=== PATIENT | female | born 1960 | race African-American/Black ===

== ENCOUNTER 2022-06-07 17:31 | Inpatient (IN) | payer MEDICARE ==
[~2022-06-07] VITALS: Ht 162.6 cm; Wt 42.7 kg
[2022-06-07] MEDS ORDERED: MORPHINE SULFATE 4 MG/ML CPJ (NOT FOR IM USE) IV ONE (19:00)
[2022-06-07 19:06] LABS: BASOPHILS % 0.6 % (0.0-2.0); EOSINOPHILS % 0.8 % (0.0-5.0); HEMATOCRIT. 36.7 % (36.0-48.0); HEMOGLOBIN. 11.5 g/dL (12.0-16.0); MEAN CORPUSCULAR HEMOGLOBIN 24.2 pg (28.0-32.0); MEAN CORPUSCULAR VOLUME 77.3 fL (81.0-99.0); MEAN PLATELET VOLUME 8.5 fl (7.4-10.4); MONOCYTES % 6.4 % (2.0-8.0); NEUTROPHILS % 84.2 % (40.0-76.0); PLATELET 433 x1000/uL (130-400); RED BLOOD CELL COUNT 4.74 mill/uL (4.2-5.4)
[2022-06-07 20:29] LABS: PLATELET ESTIMATE INCREASED
[2022-06-07] MEDS ORDERED: ASPIRIN 81MG TABLET PO NR (21:30)
[2022-06-07] MEDS ORDERED: ACETAMINOPHEN 650MG SUPP PR PRN ×2 (21:45)
[2022-06-07] MEDS ORDERED: ACETAMINOPHEN 325MG TABLET PO PRN (21:45)
[2022-06-07] MEDS ORDERED: CLONIDINE 0.1MG TABLET PO PRN (21:45)
[2022-06-07] MEDS ORDERED: DOCUSATE SODIUM 100MG CAPSULE PO PRN (21:45)
[2022-06-07] MEDS ORDERED: MAGNESIUM/ALUMINUM HYDROXIDE/SIMETHICONE 30ML UDC PO PRN (21:45)
[2022-06-07] MEDS: LORAZEPAM 0.5MG TABLET PO PRN (23:00)
[2022-06-07] MEDS: ACETAMINOPHEN 325MG TABLET PO PRN (23:01)
[2022-06-08 06:13] LABS: BASOPHILS % 1.3 % (0.0-2.0); HEMATOCRIT. 34.9 % (36.0-48.0); HEMOGLOBIN. 11.2 g/dL (12.0-16.0); MEAN CORPUSCULAR HEMOGLOBIN 24.6 pg (28.0-32.0); MEAN CORPUSCULAR VOLUME 76.7 fL (81.0-99.0); MEAN PLATELET VOLUME 7.7 fl (7.4-10.4); MONOCYTES % 6.6 % (2.0-8.0); NEUTROPHILS % 79.1 % (40.0-76.0); PLATELET 350 x1000/uL (130-400); RED BLOOD CELL COUNT 4.55 mill/uL (4.2-5.4); RED CELL DISTRIBUTION WIDTH 22.6 % (11.6-14.6)
[2022-06-08] MEDS: SODIUM CHLORIDE 3% FOR INH 4ML UD NEB INH SCH (09:00)
[2022-06-08] MEDS: FUROSEMIDE 40MG/4ML VIAL IV SCH (09:00)
[2022-06-08 14:46] LABS: CHLORIDE 95 mEq/L (98-107)
[2022-06-08 15:30] VITALS: BP 120/63
[2022-06-08 16:00] VITALS: BP 125/65
[2022-06-08] MEDS: GUAIFENESIN 200MG/10ML SUGAR FREE UDC PO PRN (16:06)
[2022-06-08] MEDS: ACETYLCYSTEINE 100MG/ML 10% VIAL 4ML INH SCH (16:14)
[2022-06-08 20:00] VITALS: BP 117/69
[2022-06-08] MEDS ORDERED: NALOXONE HCL 0.4MG/ML VIAL IV PRN (20:00)
[2022-06-08] MEDS: HYDROCODONE/ACETAMINOPHEN 5/325MG TABLET PO PRN (21:19)
[2022-06-08] MEDS: LORAZEPAM 0.5MG TABLET PO PRN (21:20)
[2022-06-08] MEDS: CEFTRIAXONE 1,000 MG in DEXTROSE 5% WATER 50 ML IV SCH (21:29)
[2022-06-09] VITALS: BP 131/87
[2022-06-09] MEDS: LORAZEPAM 0.5MG TABLET PO PRN ×2 (01:22→16:55)
[2022-06-09] MEDS: HYDROCODONE/ACETAMINOPHEN 5/325MG TABLET PO PRN ×2 (01:22→16:56)
[2022-06-09 02:02] LABS: CHLORIDE 97 mEq/L (98-107)
[2022-06-09 03:37] LABS: ETHANOL BLOOD < 10 mg/dL
[2022-06-09 04:00] VITALS: BP 126/77
[2022-06-09 04:29] LABS: TOTAL IRON BINDING CAPACITY 202 ug/dL (250-450)
[2022-06-09] MEDS: ACETYLCYSTEINE 100MG/ML 10% VIAL 4ML INH SCH ×2 (06:00→17:46)
[2022-06-09 07:02] LABS: EOSINOPHILS % 0.8 % (0.0-5.0); HEMATOCRIT. 35.1 % (36.0-48.0); HEMOGLOBIN. 11.1 g/dL (12.0-16.0); LYMPHOCYTES % 9.8 % (20.0-50.0); MEAN CORPUSCULAR HEMOGLOBIN 24.4 pg (28.0-32.0); MEAN CORPUSCULAR VOLUME 76.8 fL (81.0-99.0); MEAN PLATELET VOLUME 7.7 fl (7.4-10.4); MONOCYTES % 6.5 % (2.0-8.0); NEUTROPHILS % 81.9 % (40.0-76.0); PLATELET 290 x1000/uL (130-400); RED BLOOD CELL COUNT 4.57 mill/uL (4.2-5.4)
[2022-06-09 08:00] VITALS: BP 128/72
[2022-06-09] MEDS: FUROSEMIDE 40MG/4ML VIAL IV SCH (08:28)
[2022-06-09] MEDS: SODIUM CHLORIDE 3% FOR INH 4ML UD NEB INH SCH ×2 (09:00→17:46)
[2022-06-09 12:00] VITALS: BP 123/65
[2022-06-09 16:00] VITALS: BP 128/76
[2022-06-09 16:04] LABS: CHLORIDE 97 mEq/L (98-107)
[2022-06-09] MEDS: IPRATROPIUM/ALBUTEROL 0.5-3(2.5)MG/3ML NEB HHN PRN (17:46)
[2022-06-09] MEDS ORDERED: SODIUM POLYSTYRENE SULFONATE 15 G/60 ML BOT PO NR (19:45)
[2022-06-09 20:00] VITALS: BP 97/55
[2022-06-09] MEDS: CEFTRIAXONE 1,000 MG in DEXTROSE 5% WATER 50 ML IV SCH (20:50)
[2022-06-10] VITALS (7 sets, daily range): BP systolic 102–129; BP diastolic 58–81
[2022-06-10] MEDS: ACETYLCYSTEINE 100MG/ML 10% VIAL 4ML INH SCH ×2 (00:16→01:00)
[2022-06-10] MEDS: IPRATROPIUM/ALBUTEROL 0.5-3(2.5)MG/3ML NEB HHN PRN (01:04)
[2022-06-10] MEDS: GUAIFENESIN 200MG/10ML SUGAR FREE UDC PO PRN ×2 (01:32→23:00)
[2022-06-10] MEDS: LORAZEPAM 0.5MG TABLET PO PRN ×3 (01:33→21:46)
[2022-06-10] MEDS: HYDROCODONE/ACETAMINOPHEN 5/325MG TABLET PO PRN ×2 (01:33→20:29)
[2022-06-10 07:35] LABS: BASOPHILS % 1.4 % (0.0-2.0); EOSINOPHILS % 1.2 % (0.0-5.0); HEMATOCRIT. 34.9 % (36.0-48.0); HEMOGLOBIN. 10.9 g/dL (12.0-16.0); LYMPHOCYTES % 10.7 % (20.0-50.0); MEAN CORPUSCULAR HEMOGLOBIN 24.1 pg (28.0-32.0); MEAN CORPUSCULAR VOLUME 77.1 fL (81.0-99.0); NEUTROPHILS % 80.7 % (40.0-76.0); PLATELET 264 x1000/uL (130-400); RED BLOOD CELL COUNT 4.53 mill/uL (4.2-5.4); RED CELL DISTRIBUTION WIDTH 22.9 % (11.6-14.6)
[2022-06-10 08:09] LABS: HIV SCREEN 4G Non Reactive (Non Reactive)
[2022-06-10 09:01] LABS: CREATINE KINASE 19 IU/L (26-192)
[2022-06-10] MEDS: FUROSEMIDE 40MG/4ML VIAL IV SCH (09:04)
[2022-06-10] MEDS: ACETAMINOPHEN 325MG TABLET PO PRN (09:25)
[2022-06-10 09:46] LABS: CHLORIDE 94 mEq/L (98-107)
[2022-06-10] MEDS ORDERED: SODIUM BICARBONATE 4% (2.4MEQ) 5ML VIAL IV ONE (14:48)
[2022-06-10] MEDS ORDERED: LIDOCAINE HCL 1% 30ML VIAL (10MG/ML) ONE (14:48)
[2022-06-10] MEDS ORDERED: SODIUM CHLORIDE 10% FOR INH 15ML VIAL NEB INH SCH (15:00)
[2022-06-10 18:33] LABS: INR 1.1; PROTHROMBIN TIME 11.7 sec (9.6-11.0)
[2022-06-10] MEDS: CEFTRIAXONE 1,000 MG in DEXTROSE 5% WATER 50 ML IV SCH (20:19)
[2022-06-11] VITALS: BP 119/71
[2022-06-11 04:00] VITALS: BP 129/72
[2022-06-11 07:07] LABS: QFT TB GOLD PLUS Negative (Negative)
[2022-06-11] MEDS: IPRATROPIUM/ALBUTEROL 0.5-3(2.5)MG/3ML NEB HHN PRN ×2 (08:42→16:11)
[2022-06-11] MEDS: ACETYLCYSTEINE 100MG/ML 10% VIAL 4ML INH SCH ×2 (08:42→16:11)
[2022-06-11] MEDS: SODIUM CHLORIDE 3% FOR INH 4ML UD NEB INH SCH (08:54)
[2022-06-11] MEDS: FUROSEMIDE 40MG/4ML VIAL IV SCH (09:50)
[2022-06-11 11:45] VITALS: BP 122/77
[2022-06-11 11:50] VITALS: BP 135/79
[2022-06-11] MEDS: LORAZEPAM 0.5MG TABLET PO PRN (12:38)
[2022-06-11] MEDS: HYDROCODONE/ACETAMINOPHEN 5/325MG TABLET PO PRN ×2 (13:46→21:12)
[2022-06-11 15:18] LABS: BG CARBOXYHEMOGLOBIN 0.6 % (0.5-1.5); BG DEOXYHEMOGLOBIN 9.2 % (0.0-5.0); BG METHEMOGLOBIN 0.2 % (0.0-1.5); BG OXYGEN SATURATION 90.7 % (92.0-98.5); BG PCO2 49.8 mmHg (35.0-45.0); BG PH 7.489 (7.350-7.450); BG PO2 58.3 mmHg (75.0-100.0); BG SAMPLE SITE RIGHT RADIAL; BG TOTAL HEMOGLOBIN 11.6 g/dL (12.0-18.0); BG VENT MODE ROOM AIR
[2022-06-11 16:00] VITALS: BP 115/66
[2022-06-11] MEDS: CEFTRIAXONE 1,000 MG in DEXTROSE 5% WATER 50 ML IV SCH (21:05)
[2022-06-12] VITALS: BP 113/71
[2022-06-12] MEDS: ACETAMINOPHEN 325MG TABLET PO PRN ×2 (01:22→22:57)
[2022-06-12 04:00] VITALS: BP 134/77
[2022-06-12 08:00] VITALS: BP 104/68
[2022-06-12 08:28] LABS: BASOPHILS % 1.1 % (0.0-2.0); HEMATOCRIT. 33.2 % (36.0-48.0); HEMOGLOBIN. 10.7 g/dL (12.0-16.0); LYMPHOCYTES % 10.2 % (20.0-50.0); MEAN CORPUSCULAR HEMOGLOBIN 24.4 pg (28.0-32.0); MEAN CORPUSCULAR VOLUME 75.9 fL (81.0-99.0); MEAN PLATELET VOLUME 7.9 fl (7.4-10.4); MONOCYTES % 7.1 % (2.0-8.0); NEUTROPHILS % 80.6 % (40.0-76.0); PLATELET 272 x1000/uL (130-400); RED BLOOD CELL COUNT 4.37 mill/uL (4.2-5.4); RED CELL DISTRIBUTION WIDTH 23.6 % (11.6-14.6)
[2022-06-12] MEDS: FUROSEMIDE 40MG/4ML VIAL IV SCH (08:30)
[2022-06-12] MEDS: IPRATROPIUM/ALBUTEROL 0.5-3(2.5)MG/3ML NEB HHN PRN (09:26)
[2022-06-12] MEDS: ACETYLCYSTEINE 100MG/ML 10% VIAL 4ML INH SCH ×2 (09:26→16:39)
[2022-06-12 10:18] LABS: CHLORIDE 92 mEq/L (98-107)
[2022-06-12 11:57] VITALS: BP 108/69
[2022-06-12 16:35] VITALS: BP 130/90
[2022-06-12] MEDS: IPRATROPIUM BROMIDE (0.02%) 0.5MG/2.5ML NEB HHN PRN (16:39)
[2022-06-12] MEDS: ENOXAPARIN 30MG/0.3ML SYR SUBCUT SCH (16:44)
[2022-06-12] MEDS: ASPIRIN 81MG EC TABLET PO SCH (16:45)
[2022-06-12 20:00] VITALS: BP 142/79
[2022-06-12] MEDS: CEFTRIAXONE 1,000 MG in DEXTROSE 5% WATER 50 ML IV SCH (20:20)
[2022-06-13] VITALS: BP 139/88
[2022-06-13] MEDS: IPRATROPIUM BROMIDE (0.02%) 0.5MG/2.5ML NEB HHN PRN ×3 (00:36→20:00)
[2022-06-13] MEDS: ACETYLCYSTEINE 100MG/ML 10% VIAL 4ML INH SCH ×4 (00:36→20:00)
[2022-06-13 04:00] VITALS: BP 118/66
[2022-06-13 06:54] LABS: BASOPHILS % 0.8 % (0.0-2.0); EOSINOPHILS % 1.6 % (0.0-5.0); HEMATOCRIT. 33.5 % (36.0-48.0); HEMOGLOBIN. 10.9 g/dL (12.0-16.0); LYMPHOCYTES % 13.8 % (20.0-50.0); MEAN CORPUSCULAR HEMOGLOBIN 24.7 pg (28.0-32.0); MEAN PLATELET VOLUME 7.7 fl (7.4-10.4); MONOCYTES % 6.5 % (2.0-8.0); NEUTROPHILS % 77.3 % (40.0-76.0); PLATELET 273 x1000/uL (130-400); RED CELL DISTRIBUTION WIDTH 23.8 % (11.6-14.6)
[2022-06-13 08:00] VITALS: BP 157/82
[2022-06-13 08:43] LABS: CHLORIDE 97 mEq/L (98-107)
[2022-06-13] MEDS: SODIUM CHLORIDE 3% FOR INH 4ML UD NEB INH SCH ×2 (08:47→09:57)
[2022-06-13 09:36] LABS: HDL CHOLESTEROL 43 mg/dL (40-59); LDL CHOLESTEROL 86 mg/dL (5-100)
[2022-06-13] MEDS ORDERED: IOHEXOL-350 100 ML BOTTLE ONE (10:46)
[2022-06-13] MEDS: ENOXAPARIN 30MG/0.3ML SYR SUBCUT SCH (11:26)
[2022-06-13] MEDS: ASPIRIN 81MG EC TABLET PO SCH (11:26)
[2022-06-13 12:00] VITALS: BP 107/72
[2022-06-13] MEDS: ACETAMINOPHEN 325MG TABLET PO PRN (14:08)
[2022-06-13 16:00] VITALS: BP 158/86
[2022-06-13] MEDS ORDERED: SODIUM CHLORIDE 10% FOR INH 15ML VIAL NEB INH SCH (18:30)
[2022-06-13 20:00] VITALS: BP 138/79
[2022-06-13] MEDS: CEFTRIAXONE 1,000 MG in DEXTROSE 5% WATER 50 ML IV SCH (20:26)
[2022-06-14] VITALS: BP 128/60
[2022-06-14] MEDS: ACETAMINOPHEN 325MG TABLET PO PRN ×2 (03:22→16:26)
[2022-06-14 04:00] VITALS: BP 104/64
[2022-06-14 06:21] LABS: BASOPHILS % 0.5 % (0.0-2.0); EOSINOPHILS % 1.1 % (0.0-5.0); HEMATOCRIT. 31.5 % (36.0-48.0); HEMOGLOBIN. 10.3 g/dL (12.0-16.0); LYMPHOCYTES % 11.1 % (20.0-50.0); MEAN CORPUSCULAR HEMOGLOBIN 24.8 pg (28.0-32.0); MEAN CORPUSCULAR VOLUME 76.1 fL (81.0-99.0); MEAN PLATELET VOLUME 7.9 fl (7.4-10.4); MONOCYTES % 5.5 % (2.0-8.0); NEUTROPHILS % 81.8 % (40.0-76.0); PLATELET 293 x1000/uL (130-400); RED BLOOD CELL COUNT 4.14 mill/uL (4.2-5.4); RED CELL DISTRIBUTION WIDTH 23.7 % (11.6-14.6)
[2022-06-14 07:51] LABS: CHLORIDE 95 mEq/L (98-107)
[2022-06-14 08:00] VITALS: BP 110/71
[2022-06-14] MEDS: IPRATROPIUM BROMIDE (0.02%) 0.5MG/2.5ML NEB HHN PRN ×2 (08:47→12:47)
[2022-06-14 12:00] VITALS: BP 120/68
[2022-06-14] MEDS: SODIUM CHLORIDE 3% FOR INH 4ML UD NEB INH SCH (12:46)
[2022-06-14 16:00] VITALS: BP 100/69
[2022-06-14 20:00] VITALS: BP 128/82
[2022-06-14] MEDS: CEFTRIAXONE 1,000 MG in DEXTROSE 5% WATER 50 ML IV SCH (20:06)
[2022-06-15] VITALS: BP 117/78
[2022-06-15] MEDS: ACETAMINOPHEN 325MG TABLET PO PRN (00:43)
[2022-06-15 04:00] VITALS: BP 147/76
[2022-06-15] MEDS: HALOPERIDOL LACTATE 5MG/ML VIAL IM PRN (12:55)
[2022-06-15 20:00] VITALS: BP 134/86
[2022-06-15] MEDS: CEFTRIAXONE 1,000 MG in DEXTROSE 5% WATER 50 ML IV SCH (21:01)
[2022-06-16] VITALS: BP 136/77
[2022-06-16] MEDS: HALOPERIDOL LACTATE 5MG/ML VIAL IM PRN (00:16)
[2022-06-16 02:33] LABS: HEMATOCRIT 35.2 % (36.0-48.0); HEMOGLOBIN 11.4 g/dL (12.0-16.0); MEAN CORPUSCULAR HEMOGLOBIN 24.7 pg (28.0-32.0); MEAN CORPUSCULAR VOLUME 75.8 fL (81.0-99.0); PLATELET 386 x1000/uL (130-400); RED BLOOD CELL COUNT 4.64 mill/uL (4.2-5.4); RED CELL DISTRIBUTION WIDTH 23.9 % (11.6-14.6)
[2022-06-16 02:40] LABS: CHLORIDE 99 mEq/L (98-107)
[2022-06-16 04:00] VITALS: BP 130/77
[2022-06-16] MEDS: IPRATROPIUM BROMIDE (0.02%) 0.5MG/2.5ML NEB HHN PRN (06:20)
[2022-06-16] MEDS ORDERED: METOPROLOL TARTRATE 5MG/5ML VIAL IV NR (07:00)
[2022-06-16 07:46] LABS: HEMATOCRIT 34.8 % (36.0-48.0); HEMOGLOBIN 11.3 g/dL (12.0-16.0); MEAN CORPUSCULAR VOLUME 77.2 fL (81.0-99.0); PLATELET 370 x1000/uL (130-400); RED CELL DISTRIBUTION WIDTH 24.2 % (11.6-14.6)
[2022-06-16 08:00] VITALS: BP 92/55
[2022-06-16 08:05] LABS: CHLORIDE 101 mEq/L (98-107)
[2022-06-16 08:19] LABS: PHOSPHORUS 3.3 mg/dL (2.5-4.9)
[2022-06-16 12:00] VITALS: BP 94/65
[2022-06-16 16:00] VITALS: BP 98/72
[2022-06-16 20:00] VITALS: BP 147/80
[2022-06-17] VITALS: BP 138/80
[2022-06-17 04:00] VITALS: BP 125/58
[2022-06-17 06:26] LABS: BASOPHILS % 1.1 % (0.0-2.0); CHLORIDE 99 mEq/L (98-107); EOSINOPHILS % 1.4 % (0.0-5.0); HEMATOCRIT. 32.6 % (36.0-48.0); HEMOGLOBIN. 10.6 g/dL (12.0-16.0); MEAN CORPUSCULAR HEMOGLOBIN 25.2 pg (28.0-32.0); MEAN CORPUSCULAR VOLUME 77.6 fL (81.0-99.0); MEAN PLATELET VOLUME 7.7 fl (7.4-10.4); MONOCYTES % 6.6 % (2.0-8.0); NEUTROPHILS % 77.9 % (40.0-76.0); PLATELET 391 x1000/uL (130-400); RED CELL DISTRIBUTION WIDTH 24.1 % (11.6-14.6)
[2022-06-17 08:00] VITALS: BP 130/81
[2022-06-17] MEDS: SODIUM CHLORIDE 3% FOR INH 4ML UD NEB INH SCH (08:21)
[2022-06-17 12:00] VITALS: BP 139/74
[2022-06-17 16:00] VITALS: BP 163/103
[2022-06-17] MEDS ORDERED: METOPROLOL TARTRATE 5MG/5ML VIAL IV ONE ×2 (17:00→17:15)
[2022-06-17] MEDS: IPRATROPIUM BROMIDE (0.02%) 0.5MG/2.5ML NEB HHN PRN (17:04)
[2022-06-17] MEDS: LORAZEPAM 2MG/ML CPJ IV PRN (17:14)
[2022-06-17] MEDS ORDERED: METOPROLOL TARTRATE 5MG/5ML VIAL IV PRN (17:15)
[2022-06-17 17:19] LABS: BG BASE EXCESS 2.8 mmol/L (-2.0-2.0); BG CARBOXYHEMOGLOBIN 0.4 % (0.5-1.5); BG DEOXYHEMOGLOBIN 3.4 % (0.0-5.0); BG HCO3 ACT 28.8 mmol/L (22.0-26.0); BG METHEMOGLOBIN 0.2 % (0.0-1.5); BG OXYGEN SATURATION 96.6 % (92.0-98.5); BG PCO2 50.2 mmHg (35.0-45.0); BG PH 7.376 (7.350-7.450); BG PO2 91.9 mmHg (75.0-100.0); BG SAMPLE SITE RIGHT BRACHIAL; BG TOTAL HEMOGLOBIN 11.9 g/dL (12.0-18.0); BG VENT MODE MASK - SIMPLE
[2022-06-17 20:00] VITALS: BP 113/80
[2022-06-17] MEDS: QUETIAPINE FUMARATE 25MG TABLET PO SCH (20:23)
[2022-06-18] VITALS (8 sets, daily range): BP systolic 100–139; BP diastolic 58–89
[2022-06-18] MEDS: LORAZEPAM 2MG/ML CPJ IV PRN ×2 (02:41→10:03)
[2022-06-18 08:33] LABS: EOSINOPHILS % 2.2 % (0.0-5.0); HEMATOCRIT. 31.1 % (36.0-48.0); LYMPHOCYTES % 15.3 % (20.0-50.0); MEAN CORPUSCULAR HEMOGLOBIN 24.7 pg (28.0-32.0); MEAN CORPUSCULAR VOLUME 76.9 fL (81.0-99.0); MEAN PLATELET VOLUME 7.5 fl (7.4-10.4); MONOCYTES % 7.1 % (2.0-8.0); NEUTROPHILS % 74.4 % (40.0-76.0); PLATELET 399 x1000/uL (130-400); RED BLOOD CELL COUNT 4.05 mill/uL (4.2-5.4); RED CELL DISTRIBUTION WIDTH 24.4 % (11.6-14.6)
[2022-06-18] MEDS: SODIUM CHLORIDE 3% FOR INH 4ML UD NEB INH SCH (09:00)
[2022-06-18 09:06] LABS: CHLORIDE 102 mEq/L (98-107)
[2022-06-18] MEDS ORDERED: CEFTRIAXONE 1 G PREMIX 50 ML IV SCH (11:30)
[2022-06-18] MEDS ORDERED: CEFTRIAXONE 1,000 MG in DEXTROSE 5% WATER 50 ML IV SCH (13:00)
[2022-06-18 13:34] LABS: BG BASE EXCESS 6.4 mmol/L (-2.0-2.0); BG CARBOXYHEMOGLOBIN 0.8 % (0.5-1.5); BG DEOXYHEMOGLOBIN 13.7 % (0.0-5.0); BG FRACTION INSPIRED OXYGEN 21; BG HCO3 ACT 30.9 mmol/L (22.0-26.0); BG METHEMOGLOBIN 0.2 % (0.0-1.5); BG OXYGEN SATURATION 86.2 % (92.0-98.5); BG OXYHEMOGLOBIN 85.3 % (94.0-97.0); BG PCO2 44.5 mmHg (35.0-45.0); BG SAMPLE SITE RIGHT RADIAL; BG TOTAL HEMOGLOBIN 11.1 g/dL (12.0-18.0); BG VENT MODE ROOM AIR
[2022-06-18] MEDS: ACETAMINOPHEN 325MG TABLET PO PRN ×2 (15:06→20:06)
[2022-06-18] MEDS: QUETIAPINE FUMARATE 25MG TABLET PO SCH (20:07)
[2022-06-19] VITALS: BP 130/88
[2022-06-19 04:00] VITALS: BP 124/74
[2022-06-19 06:24] LABS: HEMATOCRIT 29.8 % (36.0-48.0); HEMOGLOBIN 9.4 g/dL (12.0-16.0); MEAN CORPUSCULAR HEMOGLOBIN 24.5 pg (28.0-32.0); MEAN CORPUSCULAR VOLUME 77.4 fL (81.0-99.0); PLATELET 425 x1000/uL (130-400); RED BLOOD CELL COUNT 3.85 mill/uL (4.2-5.4); RED CELL DISTRIBUTION WIDTH 24.9 % (11.6-14.6)
[2022-06-19 06:49] LABS: CHLORIDE 101 mEq/L (98-107)
[2022-06-19 06:55] LABS: PHOSPHORUS 3.3 mg/dL (2.5-4.9)
[2022-06-19 08:00] VITALS: BP 143/74
[2022-06-19] MEDS: LORAZEPAM 2MG/ML CPJ IV PRN (10:49)
[2022-06-19 12:00] VITALS: BP 112/80
[2022-06-19] MEDS ORDERED: VANCOMYCIN 1G PREMIX 200 ML IV NR (12:30)
[2022-06-19] MEDS: MEROPENEM 1,000 MG in SODIUM CHLORIDE 0.9% 100 ML IV SCH (13:18)
[2022-06-19 16:00] VITALS: BP 112/80
[2022-06-19] MEDS ORDERED: LOPERAMIDE HCL 2MG CAPSULE PO PRN (19:00)
[2022-06-19 20:00] VITALS: BP 114/72
[2022-06-19] MEDS: QUETIAPINE FUMARATE 25MG TABLET PO SCH (20:42)
[2022-06-20] VITALS: BP 108/63
[2022-06-20] MEDS: MEROPENEM 1,000 MG in SODIUM CHLORIDE 0.9% 100 ML IV SCH ×2 (00:02→12:26)
[2022-06-20] MEDS ORDERED: VANCOMYCIN 500MG PREMIX 100 ML IV SCH (01:00)
[2022-06-20 04:00] VITALS: BP 110/69
[2022-06-20 06:51] LABS: BASOPHILS % 1.7 % (0.0-2.0); EOSINOPHILS % 6.5 % (0.0-5.0); HEMATOCRIT. 29.5 % (36.0-48.0); HEMOGLOBIN. 9.5 g/dL (12.0-16.0); LYMPHOCYTES % 20.2 % (20.0-50.0); MEAN CORPUSCULAR VOLUME 77.6 fL (81.0-99.0); MEAN PLATELET VOLUME 7.7 fl (7.4-10.4); MONOCYTES % 8.7 % (2.0-8.0); NEUTROPHILS % 62.9 % (40.0-76.0); PLATELET 470 x1000/uL (130-400); RED BLOOD CELL COUNT 3.81 mill/uL (4.2-5.4); RED CELL DISTRIBUTION WIDTH 25.8 % (11.6-14.6)
[2022-06-20 07:36] LABS: CHLORIDE 102 mEq/L (98-107)
[2022-06-20 08:00] VITALS: BP 116/78
[2022-06-20] MEDS: LORAZEPAM 2MG/ML CPJ IV PRN (10:20)
[2022-06-20] MEDS ORDERED: IOHEXOL-350 100 ML BOTTLE ONE (10:55)
[2022-06-20] MEDS: VANCOMYCIN 750MG PREMIX 150 ML IV SCH ×2 (11:44→23:23)
[2022-06-20 12:00] VITALS: BP 106/73
[2022-06-20 16:00] VITALS: BP 104/72
[2022-06-20] MEDS: ACETAMINOPHEN 325MG TABLET PO PRN (16:25)
[2022-06-20] MEDS: FUROSEMIDE 20MG TABLET PO SCH (16:25)
[2022-06-20 20:00] VITALS: BP 112/73
[2022-06-20] MEDS: QUETIAPINE FUMARATE 25MG TABLET PO SCH (20:47)
[2022-06-20 22:18] LABS: PLATELET ESTIMATE INCREASED
[2022-06-21] VITALS: BP 99/58
[2022-06-21] MEDS: MEROPENEM 1,000 MG in SODIUM CHLORIDE 0.9% 100 ML IV SCH ×2 (01:16→13:18)
[2022-06-21 04:00] VITALS: BP 107/68
[2022-06-21 06:48] LABS: CHLORIDE 101 mEq/L (98-107)
[2022-06-21 08:00] VITALS: BP 99/57
[2022-06-21] MEDS: FUROSEMIDE 20MG TABLET PO SCH (08:29)
[2022-06-21] MEDS: ACETAMINOPHEN 325MG TABLET PO PRN (08:29)
[2022-06-21] MEDS ORDERED: QUET25TA PO (10:43)
[2022-06-21] MEDS ORDERED: FURO20TA4 PO (10:43)
[2022-06-21 12:00] VITALS: BP 98/69
[2022-06-21] MEDS ORDERED: VANCOMYCIN 500MG PREMIX 100 ML IV SCH (12:00)
[2022-06-21] MEDS: VANCOMYCIN 750MG PREMIX 150 ML IV SCH (13:18)
[2022-06-21 13:37] VITALS: BP 98/69
[2022-06-21] MEDS ORDERED: ASPI-1406 MT (15:53)
== END 2022-06-21 15:15 | DRG 871 ==
LOC: ER 17:31 → MICUSO 21:31 → 8WST 06-08 13:51
PROVIDERS: ADMIT Family Medicine Adult Medicine; ATTEND Family Medicine Adult Medicine
PROC: 0W993ZZ Drainage of Right Pleural Cavity, Percutaneous Approach (ICD-10-PCS; principal; 2022-06-10)
DX: A41.59 Other Gram-negative sepsis (principal); E43 Unspecified severe protein-calorie malnutrition; J96.21 Acute and chronic respiratory failure with hypoxia; J15.0 Pneumonia due to Klebsiella pneumoniae; I50.21 Acute systolic (congestive) heart failure; J93.9 Pneumothorax, unspecified; J94.8 Other specified pleural conditions; J47.0 Bronchiectasis with acute lower respiratory infection; I13.0 Hypertensive heart and chronic kidney disease with heart failure and stage 1 through stage 4 chronic kidney disease, or unspecified chronic kidney disease; E87.1 Hypo-osmolality and hyponatremia; E11.52 Type 2 diabetes mellitus with diabetic peripheral angiopathy with gangrene; Z68.1 Body mass index [BMI] 19.9 or less, adult; I96 Gangrene, not elsewhere classified; Z16.12 Extended spectrum beta lactamase (ESBL) resistance; Z20.822 Contact with and (suspected) exposure to COVID-19; N18.9 Chronic kidney disease, unspecified; D53.9 Nutritional anemia, unspecified; F20.9 Schizophrenia, unspecified; E11.22 Type 2 diabetes mellitus with diabetic chronic kidney disease; Z74.01 Bed confinement status; Z59.00 Homelessness unspecified
CPT/HCPCS: 32555; 36415; 36600; 71045; 71250; 72192; 73630; 75635; 80048; 80053; 80061; 80076; 80202; 80320; 82375; 82550; 82728; 82805; 82962; 83036; 83540; 83550; 83615; 83735; 83880; 83986; 84100; 84145; 84155; 84443; 84484; 85025; 85027; 86480; 86635; 87015; 87045; 87077; 87116; 87177; 87186; 87209; 87389; 87426; 87427; 87449; 87804; 93005; 93306; 93923; 94640; 97166; 97530; 97535; 99285; C1893; J0696; J1630; J1650; J1940; J2060; J2185; J2270; J3370; J3490; J7050; J7060; J7131; J7608; Q9967; G0480